=== PATIENT | male | born 1960 | race Caucasian/White ===

== ENCOUNTER 2019-03-09 08:24 | Outpatient (CLI) | payer BC ==
--- NOTE | 2019-03-09 11:20 | ULT ---
SONOGRAM RIGHT UPPER QUADRANT: Date: 03/09/19 HISTORY: Right upper quadrant pain. FINDINGS: Echogenic irregularity of the anterior gallbladder wall with ring down artifact. No stones visible. N o focal gallbladder wall thickening. Common duct is 0.5 cm. Within the right liver lobe, a 1.5 cm cys t is present. No intrahepatic biliary dilatation. No free fluid. Cyst of the right kidney incidentall y noted. IMPRESSION: 1. No evidence of gallstones or biliary obstruction. 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 2. Other incidental type findings as detailed above. POS: [facility]
== END 2019-03-09 08:25 | disposition home or self-care (01) ==
LOC: SCSULT 08:24
PROVIDERS: ATTEND Family Medicine
DX: R10.11 Right upper quadrant pain (principal)
CPT/HCPCS: 76705